=== PATIENT | female | born 1945 | race Caucasian/White ===

== ENCOUNTER 2016-12-04 02:40 | Emergency (ER) | payer MEDICARE, OTHER ==
[2016-12-04 02:01] LABS: BASOPHILS 0.4 %; BASOPHILS ABSOLUTE 0.02 10/3/uL (0.0-0.16); EOSINOPHILS 3.9 %; EOSINOPHILS ABSOLUTE 0.21 10/3/uL (0.0-0.53); HEMATOCRIT 41.2 % (36.0-48.0); HEMOGLOBIN 14.2 g/dL (12.0-16.0); IMMATURE GRANULOCYTES 0.2 %; IMMATURE GRANULOCYTES ABSOLUTE 0.01 10/3/uL (0.0-0.11); LYMPHOCYTES 56.8 %; LYMPHOCYTES ABSOLUTE 3.08 10/3/uL (0.67-4.30); MEAN CORPUS HGB CONC 34.5 g/dL (32.0-36.0); MEAN CORPUSCULAR HEMOGLOB 33.9 pg (26.0-34.0); MEAN CORPUSCULAR VOLUME 98.3 fL (80-100); MEAN PLATELET VOLUME 9.4 fL (9.2-13.0); MONOCYTES 9.2 %; NEUTROPHILS 29.5 %; PLATELET COUNT 223 10/3/uL (150-400); RBC DISTRIBUTION WIDTH 13.2 % (12.0-16.0); RED CELL COUNT 4.19 10/6/uL (4.0-5.6); WHITE BLOOD CELLS 5.4 10/3/uL (4.5-10.5)
[2016-12-04 02:02] LABS: ER CBC TAT 0 Hrs 04 MinsNP; MANUAL DIFF NO %
[2016-12-04 02:10] LABS: INTERNATIONAL NORMAL RATI 1.1 UNITS (-); PARTIAL THROMBO TIME 28.8 SEC (22.5-37.2); PROTIME (NOT ORD) 14.1 SEC (12.0-14.5)
[2016-12-04 02:18] LABS: BUN (BLOOD UREA NITROGEN) 14 MG/DL (6-23); CHEST PAIN PROFILE TAT 0 Hrs 21 Mins; CHLORIDE, SERUM 108 MMOL/L (96-112); CO2 (CARBON DIOXIDE) 27 MMOL/L (24-34); CREATININE 0.63 MG/DL (0.55-1.02); GFR AFRICAN AMERICAN 104 ML/MIN (>=60); GFR NON AFRICAN AMERICAN 90 ML/MIN (>=60); SODIUM, SERUM 146 MMOL/L (135-148); TROPONIN I 0.04 NG/ML (<0.05)
[2016-12-04 02:21] LABS: GLUCOSE, SERUM 112 MG/DL (60-99); POTASSIUM, SERUM 3.1 MMOL/L (3.5-5.3)
[~2016-12-04 02:40] MED LIST: ASA5GR PO; CARD30 PO; D 5000 PO; ELIQUIS 5 MG TAB5 MG PO; EYE OPH; FLAG500TAB PO; FLECAINIDE50 MG PO; FLONASE NAS; FOSAMAX70 MG PO; GABARONE100 MG PO; LIPITOR80 MG PO; MIRALAXPKT PO; MULTIPLE VIT PO; MULTIVITAMI1 PO; NATURE'S OPH; NORV5 PO; PROBIOTIC CAPSULE PO; PROBIOTIC PO; PROLIA60 MG/1 ML SC; PROLOP100 PO; T; TOPXL25 PO; ULTRA FRESH OPH; VIT D; VITAMIN D31000 UNIT PO; ZANTAC150 MG PO; [UNRECOGNIZED DRUG - OTHER] PO
== END 2016-12-04 03:01 | disposition home or self-care (01) ==
LOC: ER 02:40
PROVIDERS: Emergency Medicine
DX: R00.2 Palpitations (principal); E87.6 Hypokalemia; I10 Essential (primary) hypertension; I48.91 Unspecified atrial fibrillation; Z79.899 Other long term (current) drug therapy
CPT/HCPCS: 80048; 83735; 84484; 85025; 85610; 85730; 93005; 93225; 99285; A9270-GY